=== PATIENT | female | born 1990 | race Caucasian/White ===

== ENCOUNTER 2018-10-31 05:51 | Inpatient (IN) | payer MEDICAID ==
[~2018-10-31] VITALS: Ht 157.5 cm; Wt 82.5 kg
[~2018-10-31 05:51] MED LIST: PREN1TAB12
[2018-10-31 05:55] VITALS: Ht 157.5 cm; Wt 82.5 kg
[2018-10-31] MEDS ORDERED: LACTATED RINGER'S 1,000 ML IV SCH (05:55)
[2018-10-31] MEDS ORDERED: OXYTOCIN 30 UNITS/LR 500 ML IV PRN ×2 (06:00→09:00)
[2018-10-31] MEDS ORDERED: MISOPROSTOL 200 MCG TAB PR PRN ×2 (06:00→09:00)
[2018-10-31] MEDS ORDERED: METHYLERGONOVINE 0.2 MG INJ IM PRN ×2 (06:00→09:00)
[2018-10-31] MEDS ORDERED: CARBOPROST 250 MCG INJ IM PRN ×2 (06:00→09:00)
[2018-10-31] MEDS ORDERED: CEFAZOLIN 2 GM/50 ML (PMX) 50 ML IVPB SCH (06:00)
[2018-10-31] MEDS ORDERED: OXYTOCIN 30 UNITS/LR 500 ML IV SCH ×2 (06:00→08:57)
[2018-10-31 06:07] VITALS: BP 131/65; PULSE 72; RESP 19
[2018-10-31] MEDS ORDERED: CITRIC ACID/NA CITRATE 30 ML CUP PO ONE ×2 (07:00→07:30)
[2018-10-31] MEDS ORDERED: LACTATED RINGER'S 1,000 ML IV ONE (07:29)
[2018-10-31] MEDS ORDERED: METOCLOPRAMIDE 10 MG INJ IV ONE (07:30)
[2018-10-31] MEDS ORDERED: FAMOTIDINE 20 MG INJ IV ONE (07:30)
[2018-10-31] MEDS ORDERED: morphine SULFATE/PF (10 MG/10 ML) INJ ONE (07:41)
[2018-10-31] MEDS ORDERED: ONDANSETRON 4 MG INJ ONE (08:22)
[2018-10-31] MEDS ORDERED: EPHEDrine 25 MG/5 ML SYG ONE (08:32)
[2018-10-31] MEDS ORDERED: PHENYLephrine (100 MCG/ML) 10ML SYG ONE (08:32)
[2018-10-31] MEDS ORDERED: OXYTOCIN 30 UNITS/LR 500 ML IV ONE (08:36)
[2018-10-31] MEDS ORDERED: MEPERIDINE 25 MG INJ IV PRN (09:00)
[2018-10-31] MEDS ORDERED: DIPHENHYDRAMINE 50 MG INJ IV PRN ×2 (09:00)
[2018-10-31] MEDS ORDERED: PROCHLORPERAZINE 10 MG INJ IV PRN (09:00)
[2018-10-31] MEDS ORDERED: FENTAnyl 50 MCG/ML VIAL IV PRN (09:00)
[2018-10-31] MEDS ORDERED: LANOLIN HPA 1 PKT TOP PRN (09:00)
[2018-10-31] MEDS ORDERED: EPHEDrine 25 MG/5 ML SYG IV PRN (09:00)
[2018-10-31] MEDS ORDERED: HYDROmorphONE 0.5 MG/0.5 ML SYG IV PRN ×2 (09:00)
[2018-10-31] MEDS ORDERED: NACL 0.9% 3 ML SYG IV SCH (09:00)
[2018-10-31] MEDS ORDERED: KETOROLAC 30 MG INJ IV PRN (09:00)
[2018-10-31] MEDS ORDERED: ONDANSETRON 4 MG INJ IV PRN ×2 (09:00)
[2018-10-31] MEDS ORDERED: HYDROmorphONE 1 MG/5 ML IV SYRINGE IV PRN ×3 (09:00)
[2018-10-31] MEDS ORDERED: NALOXONE (0.4 MG/ML) INJ IV PRN (09:00)
[2018-10-31 12:00] VITALS: BP 121/57; PULSE 81; RESP 18
[2018-10-31] MEDS: IBUPROFEN 600 MG TAB PO SCH ×2 (12:00→18:00)
[2018-10-31] MEDS: KETOROLAC 30 MG INJ IV PRN ×2 (13:11→21:15)
[2018-10-31 16:24] VITALS: BP 110/57; PULSE 90; RESP 18
[2018-10-31 20:00] VITALS: BP 114/55; PULSE 96; RESP 18
[2018-10-31] MEDS: LACTATED RINGER'S 1,000 ML IV SCH (21:00)
[2018-11-01] VITALS: BP 116/54; PULSE 92; RESP 19
[2018-11-01] MEDS: LACTATED RINGER'S 1,000 ML IV SCH (00:56)
[2018-11-01] MEDS: KETOROLAC 30 MG INJ IV PRN (03:54)
[2018-11-01 04:00] VITALS: BP 107/52; PULSE 89; RESP 19
[2018-11-01] MEDS: IBUPROFEN 600 MG TAB PO SCH ×4 (06:00→17:48)
[2018-11-01 08:00] VITALS: BP 106/51; PULSE 187; RESP 16
[2018-11-01] MEDS: OXYCODONE/ACETAMINOPHEN (5/325) TAB PO PRN ×2 (10:26→21:04)
[2018-11-01 12:00] VITALS: BP 100/56; PULSE 112; RESP 19
[2018-11-01 16:00] VITALS: BP 108/54; PULSE 98; RESP 18
[2018-11-01 20:30] VITALS: BP 106/59; PULSE 89; RESP 56
[2018-11-02] MEDS: IBUPROFEN 600 MG TAB PO SCH ×5 (00:14→23:41)
[2018-11-02 04:00] VITALS: BP 114/62; PULSE 86; RESP 20
[2018-11-02] MEDS: OXYCODONE/ACETAMINOPHEN (5/325) TAB PO PRN ×4 (04:24→23:44)
[2018-11-02 07:40] VITALS: BP 100/56; PULSE 78; RESP 18
[2018-11-02 16:19] VITALS: BP 106/57; PULSE 83; RESP 18
[2018-11-02 20:15] VITALS: BP 119/68; PULSE 76; RESP 18
[2018-11-03 04:30] VITALS: BP 103/54; PULSE 72; RESP 18
[2018-11-03] MEDS: OXYCODONE/ACETAMINOPHEN (5/325) TAB PO PRN (05:34)
[2018-11-03] MEDS: IBUPROFEN 600 MG TAB PO SCH ×2 (05:34→11:50)
[2018-11-03 08:00] VITALS: BP 105/55; PULSE 78; RESP 16
== END 2018-11-03 14:35 | disposition home or self-care (01) | DRG 785 ==
LOC: L-D 05:51 → PP1 11:49
PROVIDERS: ADMIT Obstetrics & Gynecology; ATTEND Obstetrics & Gynecology
PROC: 0UB70ZZ Excision of Bilateral Fallopian Tubes, Open Approach (ICD-10-PCS; 2018-10-31)
PROC: 10D00Z1 Extraction of Products of Conception, Low, Open Approach (ICD-10-PCS; principal; 2018-10-31 07:30)
DX: O34.211 Maternal care for low transverse scar from previous cesarean delivery (principal); Z3A.39 39 weeks gestation of pregnancy; Z37.0 Single live birth; Z30.2 Encounter for sterilization
CPT/HCPCS: 85025; 85610; 85730; 86592; 86850; 86900; 86901; 87340; 88302; 99464; J0690; J1885; J2274; J2370; J2405; J2590; J2765; J7120